=== PATIENT | male | born 1955 | race Caucasian/White ===

== ENCOUNTER → 2018-03-24 | Outpatient (REF) | payer OTHER ==
[~2018-03-24] MED LIST: ASPI-715 PO; ATOR10TA24 PO; KET10 PO; LISI-368 PO; METXR500 PO; PER PO; SIMV-42 PO
== END ==
LOC: ZZSENDIN 12:00
PROVIDERS: ATTEND Urology
DX: R97.20 Elevated prostate specific antigen [PSA] (principal)
CPT/HCPCS: 88305; 88344